=== PATIENT | female | born 1950 | race Caucasian/White ===

== ENCOUNTER 2016-09-27 18:11 | Emergency (ER) | payer MEDICARE, OTHER ==
[~2016-09-27 18:11] MED LIST: ADVAIR500 INH; CITA40TA PO; COZ100 PO; GLPZ5T1 PO; HYDR25TA4 PO; INSU100V4 SQ; LEVO50TA83 PO; NOVO7030I SQ; POTA20TA16 PO; [UNRECOGNIZED DRUG - CODE] PO
[2016-09-27 18:37] VITALS: BP 165/94; PULSE 90; RESP 12; O2SAT 96
--- NOTE | 2016-09-27 18:53 | ED.REPORT ---
HPI-Back Pain 40 and Over Date of Service Sep 27, 2016 ED Provider: Fausto Spear DO Patient is a 66 year old female with a history of diabetes and COPD who presents to the ED complaining of lower back pain onset yesterday. Associated symptoms include pain that radiates down her right leg. Patient denies fever, numbness, urinary retention or weakness. She states that she was recently immobilizer after a foot fusion on 09/02/16. Patient reports that she has tried taking Oxycodone at home without relief. Nursing Notes Stated Complaint: LEG PAIN Chief Complaint: Back Pain or Injury Nursing Notes Reviewed: Yes Allergies: Coded Allergies: latex (Verified Allergy, Intermediate, rash, 09/27/16) sulfamethoxazole (Verified Allergy, Unknown, 10/26/13) trimethoprim (Verified Allergy, Unknown, 10/26/13) Uncoded Allergies: NO PORK PRODUCTS AGAIST RELIGOUS BELIEF (Allergy, Unknown, 12/07/03) Scheduled Citalopram-Expunged Drug, Do Not Renew! (Citalopram-Expunged Drug, Do Not Renew! ) 40 Mg Tablet 40 MG PO HS Flutic/Salmet-Expunged Drug, Do Not Renew! (Advair 500/50-Expunged Drug, Do Not Renew!) 28 Puff Disk 28 PUFF INH DAILY Hydrochlorothiazide-Expunged, Do Not Renew! (Hydrochlorothiazide-Expunged, Do Not Renew!) 25 Mg Tablet 25 MG PO DAILY Insulin Aspart-Expunged Drug, Do Not Renew! (Novolog 18-47-Pcvymapm Drug, Do Not Renew!) 10 Ml Vial 15 SQ PRN Insulin Detemir-Expunged Drug, Do Not Renew! (Levemir-Expunged Drug, Do Not Renew!) 100 U/Ml Vial 22 U SQ AM Insulin Detemir-Expunged Drug, Do Not Renew! (Levemir-Expunged Drug, Do Not Renew!) 100 U/Ml Vial 12 U SQ HS Levothyroxine-Expunged Drug, Do Not Renew! (Synthroid-Expunged Drug, Do Not Renew!) 50 Mcg Tablet 50 MCG PO DAILY Losartan-Expunged Drug, Do Not Renew! (Losartan-Expunged Drug, Do Not Renew!) 100 Mg Tablet 100 MG PO DAILY Potassium Chl-Expunged Drug, Do Not Renew! (D-Qjl-Nnslnyph Drug, Do Not Renew!) 20 Meq Tab.prt.sr 40 MEQ PO DAILY Quinine-Expunged Drug, Do Not Renew! (Quinine-Expunged Drug, Do Not Renew!) 325 Mg Capsule 325 MG PO HS glipiZIDE-Expunged Drug, Do Not Renew! (glipiZIDE-Expunged Drug, Do Not Renew!) 5 Mg Tablet 10 MG PO DAILY General Time Seen by MD: 18:52 Chief Complaint Back pain Hx Obtained From: Patient Arrived By: Walk-in Sudden in Onset?: Yes Onset Occurred: Yesterday Symptom Duration: Since onset Quality: Painful Severity: Current: Moderate Recent Healthcare: Recent doctor visit Similar Sx Previous: No Past Medical History Past Medical History Reports: COPD, Diabetes mellitus Smoking History Unknown if Ever Smoker Ambulatory Status Independent Review of Systems Constitutional: Denies: Chills, Fever Respiratory: Denies: Non-productive cough, Shortness of breath Female: Denies: Urinary frequency, Urination decreased Musculoskeletal: Reports: Back pain Neurologic: Denies: Numbness, Weakness Complete sys rev & neg: except as marked. Skin: Denies Itching, Denies Rash Physical Exam Initial Vital Signs Vital Signs (First) Date Time Temp Pulse Resp B/P Pulse Ox O2 Delivery O2 Flow Rate FiO2 09/27/16 18:37 36.9 90 12 165/94 96 Room Air Initial VS: Reviewed General/Constitutional: Awake, Alert Respiratory / Chest: Atraumatic, Breath sounds NL, Breath sounds = bilat, No respiratory distress Cardiovascular: Heart rate NL, Regular rhythm, Heart sounds NL Abdomen: Atraumatic, Soft, Non-tender Back: Atraumatic, Full range of motion, Non-tender Neurologic: Oriented X3, Speech NL, No motor deficits, No sensory deficits LOWER EXTREMITIES: boot on the right leg tenderness of the right si joint Skin: Atraumatic, Color NL, No rash, Warm, Dry Head / Eyes: Atraumatic, Normocephalic, PERRL, EOMI Psychiatric: Affect NL, Mood NL Interpretation & Diagnostics Interpretation & Diagnostics: US VENOUS DOPPLER: Findings: No signs of DVT in the right lower extremity. at 2323 Lab Results Interpretation Result Diagram: 09/27/16211709/27/162117 Test 09/27/16 21:18 09/27/16 23:55 White Blood Count 7.2th/mm3 (3.8-10.1) Red Blood Count 4.73mil/mm3 (3.90-5.20) Hemoglobin 12.7g/dL (12.0-15.6) Hematocrit 40.8% (35.0-46.0) Mean Corpuscular Volume 86.3fL (81-100) Mean Corpuscular Hemoglobin 26.8pg (27.0-35.0) Mean Corpuscular Hemoglobin Concent 31.1% (32.0-37.0) Red Cell Distribution Width 13.6% (12.3-15.4) Platelet Count 244bil/L (150-400) Neutrophils (%) (Auto) 59.3% (40-74) Lymphocytes (%) (Auto) 29.2% (14-46) Monocytes (%) (Auto) 7.7% (4-12) Eosinophils (%) (Auto) 3.4% (0-5) Basophils (%) (Auto) 0.3% (0-3) Sodium Level 138mEq/L (134-144) Potassium Level 4.0mEq/L (3.5-5.2) Chloride Level 99mEq/L (97-108) Carbon Dioxide Level 28mmol/L (18-29) Blood Urea Nitrogen 14mg/dL (8-27) Creatinine 0.70mg/dL (0.57-1.00) Estimat Glomerular Filtration Rate 120mL/min (>59) Glucose Level 196mg/dL (60-99) Calcium Level 9.2mg/dL (8.5-10.1) Total Bilirubin 0.2mg/dL (0.0-1.2) Aspartate Amino Transf (AST/SGOT) 14U/L (0-50) Alanine Aminotransferase (ALT/SGPT) 9U/L (0-32) Alkaline Phosphatase 105U/L (25-165) C-Reactive Protein 2.5mg/dL (0.0-0.5) Total Protein 6.7g/dL (6.4-8.4) Albumin 3.9g/dL (3.4-5.0) Urine Color Straw (YELLOW) Urine Appearance Clear (CLEAR,HAZY) Urine pH 5.0 (5.0-8.0) Urine Specific [place] 1.005 (1.003-1.035) Urine Protein Negativemg/dL (NEG,TRACE) Urine Glucose (UA) Negativemg/dL (NEGATIVE) Urine Ketones Negativemg/dL (NEGATIVE) Urine Occult Blood Trace (NEGATIVE) Urine Nitrite Negative (NEGATIVE) Urine Bilirubin Negative (NEGATIVE) Urine Urobilinogen Normalmg/dL (NORMAL) Urine Leukocyte Esterase Negative (NEGATIVE) Urine RBC 0-2/hpf (0-2) Urine WBC 0-5/hpf (0-5) Urine Epithelial Cells None/hpf (NONE-MOD) Urine Crystals None seen (NONE SEEN) Urine Bacteria Few/hpf (NONE-FEW) Urine Hyaline Casts None/lpf (NONE) Urine Granular Casts None seen (NONE SEEN) Urine Waxy Casts None seen (NONE SEEN) Urine Red Blood Cell Casts None seen (NONE SEEN) Urine White Blood Cell Casts None seen (NONE SEEN) Urine Mucus None seen (None Seen) Urine Trichomonas None seen (NONE SEEN) Urine Yeast None (NONE SEEN) Urinalysis Comment None Urine Culture Reflexed Not indicated CT Abd / Pelvis Interpretation IMPRESSION: 15mm left renal stone. No hydronephrosis. There is a moderate-sized ventral hernia containing only fat. at 2307 Re-Eval/Medical Decision Med Decision/Clinical Course Patient status post foot fusion complaining of back pain onset yesterday. Initially, ordered ultrasound to rule out DVT. Her C-reactive protein was elevated, ordered CT to rule out infection. All scans were normal and reassuring. Re-Evaluation/Progress #1: Time of Eval: 21:06 Re-Evaluation/Progress Note: Discussed plan for ultrasound to rule out blood clot in her leg. Re-Evaluation/Progress #2: Time of Eval: 22:11 Re-Evaluation/Progress Note: Discussed elevated C-reactive protein and plan for CT. Patient understands and agrees to plan. Re-Evaluation/Progress #3: Time of Eval: 23:40 Re-Evaluation/Progress Note: Discussed results and plan for discharge. Patient understands and agrees to plan. All questions were addressed. Counseled Regarding: Diagnosis, Lab results, Need for follow-up, When/why to return to ED Discharge & Departure Impression: Primary Impression: Low back pain Chronicity: acute Back pain laterality: right Sciatica presence: with sciatica Sciatica laterality: sciatica of right side Qualified Code: M54.41 - Lumbago with sciatica, right side Disposition: Home Discharge Condition All VS Reviewed: Yes Condition: Stable Patient Instructions: Acute Low Back Pain (ED), Sciatica (ED) Additional Instructions: Your ultrasound was normal and showed no evidence of a blood clot. The CAT scan of your abdomen and pelvis was reassuring. No evidence of an abscess or bony fracture. Do not drive tonight. Do not take any further sedating medications. Call your doctor tomorrow morning to set up a follow-up. Return to the emergency department if you develop any new or concerning symptoms including numbness, weakness or incontinence. Referrals: Tony Jim DO (PCP) Myke Attestation Portions of this note were transcribed by Beth Mckinley. I, Dr. Spear personally performed the history, physical exam and medical decision-making; I reviewed and confirmed the accuracy of the information in the transcribed note. Signed by: Myke Douglas, 09/27/16 and 2341 copies to: Tony Jim Todd P DO Sep 27, 2016 18:53 Gianna Mckinley Sep 27, 2016 20:12
[2016-09-27] MEDS ORDERED: Ondansetron 2 mg/mL 2 mL Inj IVPUSH PRN (21:10)
[2016-09-27] MEDS: HYDROmorphone 0.5 mg/0.5 mL iSecure Syringe IVPUSH PRN ×2 (21:20→23:22)
[2016-09-27 21:28] LABS: BASOPHILS % (AUTO) 0.3 % (0-3); EOSINOPHILS % (AUTO) 3.4 % (0-5); MONOCYTES % (AUTO) 7.7 % (4-12); Mean Corpuscular Hemoglobin 26.8 pg (27.0-35.0); Mean Corpuscular Volume 86.3 fL (81-100); NEUTROPHILS % (AUTO) 59.3 % (40-74); Platelet Count 244 bil/L (150-400)
[2016-09-27] MEDS ORDERED: Ketorolac 15 mg/mL Inj IVPUSH ONE (23:45)
[2016-09-27] MEDS ORDERED: HYDROmorphone 0.5 mg/0.5 mL iSecure Syringe IVPUSH ONE (23:45)
[2016-09-28 00:14] LABS: APPEARANCE,URINE CLEAR (CLEAR,HAZY); COLOR,URINE STRAW (YELLOW)
[2016-09-28 00:15] LABS: OCCULT BLOOD,URINE TRACE (NEGATIVE)
[2016-09-28 00:19] LABS: UROBILINOGEN,URINE NORMAL (NORMAL)
[2016-09-28] MEDS ORDERED: Sodium Chloride LOK Flush 10 mL Syringe IVFLUSH SCH (00:30)
[2016-09-28 00:34] VITALS: BP 134/69; RESP 16; O2SAT 93
--- NOTE | 2016-09-28 08:22 | DRSVH ---
PROCEDURE: US VEINOUS LEG DUPLEX UNILATERAL, RIGHT INDICATIONS: post operative right leg pain TECHNIQUE: Preliminary report by mold dumper radiology Real-time imaging, as well as color and pulse Doppler interrogation, were performed of the lower extr emity deep veins from the inguinal ligament to the popliteal fossa. COMPARISON: None. FINDINGS: The deep veins are normally compressible, and free of intraluminal thrombus. Color and pu lse Doppler demonstrate normal phasic intraluminal flow. There is normal augmentation response to di stal compression maneuver. IMPRESSION: Negative for DVT Findings are concordant with the preliminary report. Dictated by: Prem Berman M.D. on 09/28/2016 at 8:19 Approved by: Prem Berman M.D. on 09/28/2016 at 8:20
--- NOTE | 2016-09-28 08:48 | DRSVH ---
PROCEDURE: CT ABDOMEN AND PELVIS WITH CONTRAST ([id number]) INDICATIONS: right flank and right SI joint pain, recent surger TECHNIQUE: After the administration of intravenous contrast, 5 mm thick sections acquired from the diaphragm to the symphysis. 5 mm coronal and sagittal reformats were acquired. For radiation dose reduction, the following was used: automated exposure control, adjustment of mA and/or kV according to patient siz e. COMPARISON: [facility], CT, abdomen and pelvis from 09/16/2006 and 10/26/2013. FINDINGS: Image quality: Excellent. ABDOMEN: Lung bases: Lung bases are clear. Heart size is normal. Soft tissue prominence adjacent to old infe rior fractures (se 2 im 5) unchanged given differences in technique since at least September 16, 2006. Solid organs: Cholecystectomy. The liver, pancreas, spleen, adrenal glands and right kidney are mary l. New nonobstructing 2.1 cm left renal calculus. Hysterectomy.. Peritoneum and bowel: Bowel loops demonstrate normal wall thickness and caliber. No free fluid or a ir. Nodes and vessels: No retroperitoneal or mesenteric adenopathy by size criteria. Aorta and inferior vena cava are normal in size. Miscellaneous: No ventral hernias. PELVIS: Genitourinary: Bladder wall thickness is normal. Miscellaneous: No inguinal hernias or adenopathy. Fat-containing supraumbilical midline hernia. Rig ht lower quadrant postoperative change. Bones: No suspicious bony lesions. No vertebral body compression fractures. Left hip postoperative change. IMPRESSION: 1. No radiologic etiology for the patient's right lower quadrant pain. There are new right lower quad rant postoperative changes. 2. Interval development of a 2.1 cm nonobstructing left renal calculus. Recommend nonemergent urology consultation. 3. Nonobstructing midline fat containing hernia superior to the umbilicus. 4. There are no discrepancies with the preliminary report. Dictated by: Dakota Villaseñor M.D. on 09/28/2016 at 8:30 Approved by: Dakota Villaseñor M.D. on 09/28/2016 at 8:40
== END 2016-09-28 00:35 | disposition home or self-care (01) ==
LOC: SED 18:11
DX: M54.41 Lumbago with sciatica, right side (principal); E11.9 Type 2 diabetes mellitus without complications; J44.9 Chronic obstructive pulmonary disease, unspecified; Z88.1 Allergy status to other antibiotic agents; Z88.8 Allergy status to other drugs, medicaments and biological substances; Z91.040 Latex allergy status
CPT/HCPCS: 36415; 74177; 80053; 81000; 85025; 86140; 93971; 96374; 96375; 96376; 99285; J1170; J1885; J2405; Q9967